=== PATIENT | male | born 1980 | race Asian ===

== ENCOUNTER → 2019-03-21 09:37 | Outpatient (CLI) | payer BC, SELFPAY ==
--- NOTE | 2019-03-21 | DI.US.S_ITS ---
PROCEDURE: US ABDOMEN LIMITED INDICATIONS: SOFT TISSUE OF PERINEUM, PERINEAL CYST IN MALE TECHNIQUE: Real-time focused scanning was performed of the abdomen, with image documentation. COMPARISON: None. FINDINGS: There is a palpable lump posterior to the right testicle/scrotum, which is seen is a superficial, complex fluid collection that measures 5.6 x 1.8 x 4.2 cm. Surrounding increased vascularity can be seen. IMPRESSION: At the area of palpable lump, there is complex fluid collection seen that is highly suspicious for a superficial abscess that measures up to 5.6 cm. Note: Case discussed by telephone with Clem Fernandez at 10:56 AM [place] time on March 21, 2019. Dictated by: Justin Godinez M.D. on 03/21/2019 at 9:53 Approved by: Justin Godinez M.D. on 03/21/2019 at 10:03
== END ==
PROVIDERS: Visit Provider Registered Nurse
DX: K62.89 Other specified diseases of anus and rectum (principal)
CPT/HCPCS: 76705